=== PATIENT | male | born 1960 | race American Indian/Alaskan Native ===

== ENCOUNTER 2016-09-12 14:34 | Emergency (ER) | payer BC ==
--- NOTE | 2016-09-12 16:21 | Emergency Department Report ---
<PHU THORNTON - Last Filed: 09/12/16 18:25> ED General Adult HPI - General Chief complaint: High BP Stated complaint: HIGH BP Source: patient Mode of arrival: Ambulatory Limitations: No Limitations - History of Present Illness Initial comments: 55 year old male presents to ED with headache after intermittent episodes of High BP. patient states he was [facility] about to receive steroid injection and pain medication but they sent him to ED for BP of 194/ 165. patient states he has had a headache today. patient is stable, neurologically intact and in no acute distress. patient denies chest pain, SOB, N/V, syncope, LOC, AMS. -: Sudden Location: head Radiation: non-radiation Consistency: intermittent Improves with: none Worsens with: none Associated Symptoms: denies other symptoms, headaches. denies: confusion, chest pain, diaphoresis, fever/chills, nausea/vomiting, seizure, shortness of breath, syncope, weakness - Related Data Allergies Allergy/AdvReac Type Severity Reaction Status Date / Time No Known Allergies Allergy Unverified 09/12/16 14:44 ED Review of Systems ROS: Stated complaint: HIGH BP Other details as noted in HPI Constitutional: denies: chills, fever Eyes: denies: eye pain, eye discharge, vision change ENT: denies: ear pain, throat pain Respiratory: denies: cough, orthopnea, shortness of breath, SOB with exertion, SOB at rest, wheezing Cardiovascular: denies: chest pain, palpitations, dyspnea on exertion, orthopnea Endocrine: no symptoms reported Gastrointestinal: denies: abdominal pain, nausea, diarrhea Genitourinary: denies: urgency, dysuria Musculoskeletal: denies: back pain, joint swelling, arthralgia Skin: denies: rash, lesions Neurological: headache. denies: weakness, numbness, paresthesias, confusion, abnormal gait Psychiatric: denies: anxiety, depression Hematological/Lymphatic: denies: easy bleeding, easy bruising ED Past Medical Hx - Past Medical History Hx Hypertension: Yes Hx GERD: Yes Hx Psychiatric Treatment: Yes (BIPOLAR / DEPRESSION / PTSD) Hx Asthma: Yes Additional medical history: SINUS. TIA. CHOLESTEROL. INSOMNIA - Surgical History Additional Surgical History: BACK SURGERY 2004. HERNIA REPAIR X 2. INTERSTIM - Social History Smoking Status: Never Smoker Substance Use Type: Prescribed ED Physical Exam - General Limitations: No Limitations General appearance: alert, in no apparent distress - Head Head exam: Present: atraumatic, normocephalic - Eye Eye exam: Present: normal appearance, PERRL, EOMI - ENT ENT exam: Present: mucous membranes moist - Neck Neck exam: Present: normal inspection, full ROM. Absent: tenderness - Respiratory Respiratory exam: Present: normal lung sounds bilaterally. Absent: respiratory distress, wheezes, rales, chest wall tenderness - Cardiovascular Cardiovascular Exam: Present: regular rate, normal rhythm. Absent: systolic murmur, diastolic murmur, rubs, gallop - GI/Abdominal GI/Abdominal exam: Present: soft, normal bowel sounds. Absent: distended, tenderness, guarding - Rectal Rectal exam: Present: deferred - Extremities Exam Extremities exam: Present: normal inspection, full ROM. Absent: tenderness - Back Exam Back exam: Present: normal inspection - Neurological Exam Neurological exam: Present: alert, oriented X3, normal gait - Expanded Neurological Exam Expanded Neurological exam: Absent: innattentive, protecting the airway Patient oriented to: Present: person, place, time Speech: Present: fluid speech Cranial nerves: EOM's Intact: Normal, Tongue Deviation: Normal, Nystagmus: Normal, Facial Sensation: Normal Cerebellar function: Finger to Nose: Normal Upper motor neuron: Pronator Drift: Normal Sensory exam: Upper Extremity Light Touch: Normal, Lower Extremity Light Touch: Normal Motor strength exam: RUE: 5, LUE: 5, RLE: 5, LLE: 5 DTR: bicep (R): 2+, bicep (L): 2+, knee (R): 2+, knee (L): 2+ Best Eye Response ([place]): (4) open spontaneously Best Motor Response ([place]): (6) obeys commands Best Verbal Response ([place]): (5) oriented [place] Total: 15 - Psychiatric Psychiatric exam: Present: normal affect, normal mood - Skin Skin exam: Present: warm, dry, intact, normal color. Absent: rash ED Course Vital Signs 09/12/16 09/12/16 09/12/16 14:50 18:00 18:30 Temperature 97.9 F Pulse Rate 71 70 Respiratory 17 Rate Blood Pressure 164/108 184/121 Blood Pressure 188/111 [Left] O2 Sat by Pulse 99 Oximetry 09/12/16 19:37 Temperature Pulse Rate Respiratory Rate Blood Pressure 188/102 Blood Pressure [Left] O2 Sat by Pulse Oximetry ED Medical Decision Making - Lab Data Result diagrams: 09/12/16 17:30 09/12/16 17:30 Lab Results 09/12/16 09/12/16 Range/Units 17:30 17:30 WBC 6.8 (4.5-11.0) K/mm3 RBC 5.40 H (3.65-5.03) M/mm3 Hgb 14.8 (11.8-15.2) gm/dl Hct 46.4 H (35.5-45.6) % MCV 86 (84-94) fl MCH 27 L (28-32) pg MCHC 32 (32-34) % RDW 15.6 H (13.2-15.2) % Plt Count 214 (140-440) K/mm3 Lymph % (Auto) 33.0 (13.4-35.0) % [place] % (Auto) 8.1 H (0.0-7.3) % Eos % (Auto) 2.9 (0.0-4.3) % Baso % (Auto) 0.8 (0.0-1.8) % Lymph # 2.2 (1.2-5.4) K/mm3 [place] # 0.5 (0.0-0.8) K/mm3 Eos # 0.2 (0.0-0.4) K/mm3 Baso # 0.1 (0.0-0.1) K/mm3 Seg Neutrophils % 55.2 (40.0-70.0) % Seg Neutrophils # 3.7 (1.8-7.7) K/mm3 Sodium 142 (137-145) mmol/L Potassium 4.4 (3.6-5.0) mmol/L Chloride 100.0 (98-107) mmol/L Carbon Dioxide 28 (22-30) mmol/L Anion Gap 18 mmol/L BUN 9 (9-20) mg/dL Creatinine 1.3 (0.8-1.5) mg/dL Estimated GFR > 60 ml/min BUN/Creatinine Ratio 6.92 % Glucose 90 (75-100) mg/dL Calcium 10.0 (8.4-10.2) mg/dL - Radiology Data Radiology results: report reviewed CT head negative Ct head study per radiologist. - Medical Decision Making 55 year old male presents to ED with headaches after episode of elevated BP. patient's BP in ED upon arrival was 164/108. patient then had second BP reading of 184/124 and was given clonidine. Critical care attestation.: If time is entered above; I have spent that time in minutes in the direct care of this critically ill patient, excluding procedure time. ED Disposition Clinical Impression: Uncontrolled hypertension Disposition: DC-01 TO HOME OR SELFCARE Is pt being admited?: No Does the pt Need Aspirin: No Condition: Stable Instructions: Hypertension (ED) Additional Instructions: Follow-up which her primary care physician Take your medication as prescribed after picking up from [facility] Referrals: PRIMARY CARE, [Primary Care Provider] - 3-5 Days Forms: Work/School Release Form(ED) <SULTANA SIERRA - Last Filed: 09/12/16 19:59> ED Medical Decision Making - Lab Data Result diagrams: 09/12/16 17:30 09/12/16 17:30 - Medical Decision Making Patient is signed off to me by VALERIA thornton Patient received 10 mg IV hydralazine to reduce blood pressure Blood pressure reduced. Primary care physician was contacted by a VALERIA Thornton and there was discussion of sending the patient's prescription to [facility] during ED stay. Primary care physician called patient's blood pressure medication to [facility] Patient instructed to go pick the medication up after leaving the ER and start medication tomorrow morning Patient is alert and oriented 3. He is in no acute distress. CT scan was negative. Labs negative. Asymptomatic elevated blood pressure Discussed the patient's symptoms worsen or new symptoms arise return to ED ED Disposition Is pt being admited?: No Does the pt Need Aspirin: No Time of Disposition: 19:57
[2016-09-12] MEDS ORDERED: FLEXERIL PO ONE (16:42)
[2016-09-12] MEDS ORDERED: DECADRON IM ONE (16:42)
[2016-09-12] MEDS ORDERED: NORCO 7.5/325 PO ONE (16:42)
[2016-09-12] MEDS ORDERED: DECADRON ONE (16:50)
[2016-09-12] MEDS ORDERED: FLEXERIL ONE (16:50)
[2016-09-12] MEDS ORDERED: NORCO 7.5/325 ONE (16:50)
[2016-09-12 17:50] LABS: Basophils % (Auto) 0.8 % (0.0-1.8); Eosinophils % (Auto) 2.9 % (0.0-4.3); Hematocrit 46.4 % (35.5-45.6); Hemoglobin 14.8 gm/dl (11.8-15.2); Mean Corpuscular HGB Conc 32 % (32-34); Mean Corpuscular Hemoglobin 27 pg (28-32); Mean Corpuscular Volume 86 fl (84-94); Platelet Count 214 K/mm3 (140-440); Red Cell Distribution Width 15.6 % (13.2-15.2); White Blood Count 6.8 K/mm3 (4.5-11.0)
--- NOTE | 2016-09-12 17:51 | Cat Scan Report ---
FINAL REPORT EXAM: CT HEAD/BRAIN WO CON HISTORY: headache/high BP TECHNIQUE: CT head without contrast PRIORS: None. FINDINGS: No acute intra-axial or extra-axial hemorrhage is identified. There is no evidence of midline shift or mass effect. The ventricles and sulci are within normal limits. Dey-white matter differentiation is intact. No acute parenchymal abnormalities seen. Bony calvarium is grossly intact. Visualized portions of the mastoids and paranasal sinuses are unremarkable. IMPRESSION: Negative CT head
[2016-09-12] MEDS ORDERED: CATAPRES PO ONE (17:55)
[2016-09-12 18:05] LABS: Anion Gap 18 mmol/L; BUN/Creatinine Ratio 6.92; Blood Urea Nitrogen 9 mg/dL (9-20); Carbon Dioxide 28 mmol/L (22-30); Glucose 90 mg/dL (75-100); Potassium 4.4 mmol/L (3.6-5.0); Sodium 142 mmol/L (137-145)
[2016-09-12] MEDS ORDERED: APRESOLINE IV ONE (19:24)
[2016-09-12 20:29] VITALS: BP 180/70
== END 2016-09-12 20:27 | disposition home or self-care (01) ==
LOC: ED 14:34
DX: I10 Essential (primary) hypertension (principal); K21.9 Gastro-esophageal reflux disease without esophagitis; F31.9 Bipolar disorder, unspecified; J45.909 Unspecified asthma, uncomplicated
CPT/HCPCS: 36415; 70450; 80048; 85025; 96372; 96374; 99284; J0360; J1100